=== PATIENT | female | born 1935 | race Asian ===

== ENCOUNTER 2016-11-16 09:54 | Day surgery (SDC) | payer MEDICARE, MEDICAID ==
[~2016-11-16] VITALS: Ht 152.4 cm; Wt 55.6 kg
[~2016-11-16 09:54] MED LIST: ALBU8.5H3 INH; AMLO10TA2 PO; ATOR10TA PO; FERR325T20 PO; FURO20TA3 PO; SEVE800T8 PO; TEMA7.5C PO
[2016-11-16] MEDS ORDERED: SODIUM CHLORIDE 0.9% 1,000 ML IV SCH (10:20)
[2016-11-16] MEDS ORDERED: HEPARIN 1,000 UNITS/ML, 10ML ONE (10:22)
[2016-11-16 10:41] VITALS: BP 194/70
[2016-11-16] MEDS ORDERED: ONDANSETRON 2MG/ML, 2ML ONE (12:45)
[2016-11-16] MEDS ORDERED: PROPOFOL 10 MG/ML, 20ML ONE (12:45)
[2016-11-16] MEDS ORDERED: CEFAZOLIN 1,000 MG ONE (12:45)
[2016-11-16] MEDS ORDERED: FENTANYL PF 100 MCG/2ML ONE ×2 (12:45→14:00)
[2016-11-16] MEDS ORDERED: LIDOCAINE 2% 100MG/5ML SYRINGE ONE (12:45)
[2016-11-16] MEDS ORDERED: HEPARIN 1,000 UNITS/ML, 10ML IV ONE (12:50)
[2016-11-16] MEDS ORDERED: ONDANSETRON 2MG/ML, 2ML IVPush PRN (13:00)
[2016-11-16] MEDS ORDERED: OXYcodone 5 MG/5 ML ORAL.SOL UDC PO PRN (13:00)
[2016-11-16] MEDS ORDERED: hydrALAzine 20 MG/ML, 1ML IV PRN (13:00)
[2016-11-16] MEDS ORDERED: HYDROmorphone 1 MG/ML, 1ML IV PRN (13:00)
[2016-11-16] MEDS ORDERED: LABETALOL 5MG/ML, 20ML IV PRN (13:00)
[2016-11-16] MEDS ORDERED: hydrALAzine 20 MG/ML, 1ML ONE (13:56)
[2016-11-16] MEDS ORDERED: OXYcodone 5 MG/5 ML ORAL.SOL UDC ONE (14:01)
[2016-11-16] MEDS: FENTANYL PF 100 MCG/2ML IV PRN ×2 (14:04→14:12)
[2016-11-16] MEDS ORDERED: ONDANSETRON 2MG/ML, 2ML IVPush ONE (16:30)
== END 2016-11-16 17:20 | disposition home or self-care (01) ==
LOC: OUT 09:54
PROVIDERS: ATTEND Surgery Vascular Surgery
DX: T82.590A Other mechanical complication of surgically created arteriovenous fistula, initial encounter (principal); I12.0 Hypertensive chronic kidney disease with stage 5 chronic kidney disease or end stage renal disease; N18.6 End stage renal disease; J45.909 Unspecified asthma, uncomplicated; Z99.2 Dependence on renal dialysis; Z88.0 Allergy status to penicillin; Y83.2 Surgical operation with anastomosis, bypass or graft as the cause of abnormal reaction of the patient, or of later complication, without mention of misadventure at the time of the procedure
CPT/HCPCS: 36415; 36832; 80047; J0360; J0690; J1644; J2405; J2704; J3010; J7030